=== PATIENT | female | born 1950 | race Caucasian/White ===

== ENCOUNTER → 2018-01-20 | Outpatient (CLI) | payer MEDICARE, OTHER | LOC: GMAM 16:44 | PROVIDERS: ATTEND Family Medicine | DX: E03.9 Hypothyroidism, unspecified (principal) ==

== ENCOUNTER → 2019-01-13 | Outpatient (CLI) | payer MEDICARE, OTHER | LOC: GMAM 10:45 | PROVIDERS: ATTEND Family Medicine | DX: E03.9 Hypothyroidism, unspecified (principal); Z79.899 Other long term (current) drug therapy ==

== ENCOUNTER → 2019-01-21 | Outpatient (CLI) | payer MEDICARE, OTHER ==
--- NOTE | 2019-01-21 18:43 | MRI ---
EXAM DESCRIPTION: Lumbar Spine w/o Contrast : Magnetic Resonance Imaging. CLINICAL HISTORY: LUMBAR DISC DISEASE COMPARISON: LUMBAR TECHNIQUE: Multiplanar, multiple standard sequences, non contrast MRI, lumbar spine. FINDINGS: L5-S1: The disc is well visualized on axial T2 series 501, image 3. L5-S1 disc space decreased with desiccation of the disc. No significant bulging, but hyperintense T2-weighted annular fissure in the left posterior lateral margin abutting the foramen. Posterior elements unremarkable. Canal and foramina are patent. L4-L5: Moderate loss of the disc space with disc desiccation. Minimal anterior bulging and endplate ridging. Multiple endplate irregularities superiorly and inferiorly. Moderate endplate reactive changes bilaterally and anteriorly more than posterior. Bilateral hypertrophic facet arthrosis and posterior lateral bilateral endplate ridging. Canal is patent with minimal bilateral foraminal narrowing. L3-L4: Disc desiccation with minimal disc space loss mostly posterior. No significant bulge into the canal and foramina and no significant narrowing. Hypertrophic facet arthrosis and posterior ligament thickening minimal. Circumscribed hyperintense T1 and T2 hemangioma superior L2 vertebral body. L2-L3: Marked loss of disc space with endplate reactive changes more severe in the midline and to the right of midline with more advanced changes to the right of midline. Anterior disc bulge with endplate ridging. Disc osteophyte bulge on the right narrowing the right foramen and abutting the right L2 nerve. Mild hypertrophic facet arthrosis and posterior ligament thickening abutting the thecal sac with posterior mild disc osteophyte bulge and trace anterolisthesis. Mild canal narrowing. Left foramen patent. L1-L2: Moderate disc space loss with endplate irregularities anterior bulging and endplate ridging. Acute or subacute Schmorl's node superior L2 endplate containing fluid with surrounding marrow edema. More advanced endplate changes to the right of midline with disc spur complex narrowing the right foramen. Posterior ligament thickening and hypertrophic facet arthrosis minimal. Minimal canal narrowing. T12-L1: Disc desiccation with disc space maintained. No posterior bulging. Mild hypertrophic facet arthrosis and posterior ligament thickening. Canal and foramina are patent. Conus terminates at this level. L2-S1 levoscoliosis. Decreased lordosis. Paravertebral soft tissues paraspinal muscle atrophy.. Distal cord normal signal and caliber. Heterogeneous marrow signal in the remaining vertebral bodies and the posterior elements. Vertebral bodies are not compressed at any level. IMPRESSION: 1. Multiple levels of moderate to advanced disc space loss and spondylosis. No canal or foraminal stenosis at any level. 2. Annular fissure posterior left lateral L5-S1 disc abutting the foramen but no significant bulge and no herniation. Canal and foramina with no significant narrowing. 3. L2-L3 disc osteophyte bulge on the right with spondylosis narrowing right foramen and abutting the right L2 nerve. 4. Acute or subacute Schmorl's node in the superior L3 endplate centrally. Electronically signed by: Medhat Jimenez MD 01/21/2019 6:41 PM [facility]
== END ==
LOC: MRI 08:00
PROVIDERS: ATTEND Family Medicine
DX: M47.26 Other spondylosis with radiculopathy, lumbar region (principal); M51.16 Intervertebral disc disorders with radiculopathy, lumbar region; M25.78 Osteophyte, vertebrae; M51.46 Schmorl's nodes, lumbar region; M85.9 Disorder of bone density and structure, unspecified

== ENCOUNTER → 2019-01-22 | Outpatient (CLI) | payer MEDICARE, OTHER ==
--- NOTE | 2019-01-25 12:11 | MAM ---
EXAM DESCRIPTION: 3D Screening BILATERAL : Digital Mammography. CLINICAL HISTORY: 68 years Female ANNUAL SCREENING . No complaints or personal history of breast cancer. Remote family history of breast cancer. Menarche age 11. Childbirth age 23. Postmenopausal unknown age. HRT unknown duration. Lifetime risk of developing breast cancer (Tyrer-Cuzick model)(%): 5.6. COMPARISON: Baseline study at this facility. No prior reports available. TECHNIQUE: Bilateral CC and MLO projection full-field images, digital tomosynthesis mammographic technique. Bilateral digital 2-D full-field MLO images. CAD not available for tomosynthesis or 2-D images. FINDINGS: The breast parenchymal density pattern is: Scattered areas of fibroglandular density. No skin thickening or nipple retraction. Bilateral solitary microcalcifications. Fibroglandular tissues are predominantly in the mid breast and upper outer quadrants bilaterally. Focal asymmetry upper outer quadrant posterior third right breast, 10:00-10:30, 10 cm from the nipple. Also focal asymmetry to 30, 3 cm from the nipple. No abnormal microcalcifications. No focal, stellate mass or density, focal asymmetry , and no suspicious microcalcifications left breast IMPRESSION: BI-RADS CATEGORY: 0 - INCOMPLETE- Need additional imaging evaluation. FOLLOW-UP: Recall for additional imaging: Full-field 2-D and tomosynthesis LM projection right breast with directed right breast ultrasound.. Written communication concerning the IMPRESSION and Follow-up, will be mailed to the patient and referring health care provider. Electronically signed by: Medhat Jimenez MD 01/25/2019 12:10 PM [facility]
== END | disposition home or self-care (01) ==
LOC: MAMMO 11:00
PROVIDERS: ATTEND Family Medicine
DX: Z12.31 Encounter for screening mammogram for malignant neoplasm of breast (principal)

== ENCOUNTER → 2019-07-22 | Outpatient (CLI) | payer MEDICARE, OTHER | LOC: GMAM 11:11 | PROVIDERS: ATTEND Family Medicine | DX: E03.9 Hypothyroidism, unspecified (principal); E78.2 Mixed hyperlipidemia ==

== ENCOUNTER → 2019-10-26 | Outpatient (CLI) | payer MEDICARE, OTHER | END | disposition home or self-care (01) | LOC: GMAM 14:23 | PROVIDERS: ATTEND Family Medicine | DX: R39.15 Urgency of urination (principal) ==

== ENCOUNTER 2020-01-10 05:05 | Day surgery (SDC) | payer MEDICARE, OTHER ==
[2020-01-10] MEDS ORDERED: MIDAZOLAM INJ 2 MG/2 ML VIAL ONE ×3 (06:47→10:26)
[2020-01-10] MEDS ORDERED: TROP1%/CYCLOPEN 1%/PHENYL 2.5% DROPS OPHTH ONE (09:30)
[2020-01-10] MEDS ORDERED: PROPARACAINE 0.5% OPHTH SOL 15 ML BTTL LEFT_EYE ONE (10:29)
[2020-01-10] MEDS ORDERED: LIDOCAINE 1% MPF 2 ML VIAL INJ ONE ×2 (10:39→10:43)
[2020-01-10] MEDS ORDERED: MOXIFLOXACIN HCL (OPHTH) 1 DROP DROPS LEFT_EYE ONE ×2 (10:40→10:53)
[2020-01-10] MEDS ORDERED: TOBRAMYCIN SULF 0.3 % OPHT SOL 1 DROP LEFT_EYE ONE ×2 (10:41→10:53)
[2020-01-10] MEDS ORDERED: DEXAMETHASONE 0.1% OPHTH SOL 1 DROP LEFT_EYE ONE ×2 (10:41→10:53)
[2020-01-10] MEDS ORDERED: BRIMONIDINE 0.2% OPHTH DROPS LEFT_EYE ONE ×2 (10:42→10:53)
== END 2020-01-10 11:32 | disposition home or self-care (01) ==
LOC: AMB 05:05
PROVIDERS: ATTEND Ophthalmology
DX: H25.13 Age-related nuclear cataract, bilateral (principal); Z88.8 Allergy status to other drugs, medicaments and biological substances
CPT/HCPCS: 00142; 66984; J2250

== ENCOUNTER → 2020-01-20 | Outpatient (CLI) | payer MEDICARE, OTHER | LOC: GMAM 11:02 | PROVIDERS: ATTEND Family Medicine | DX: E03.9 Hypothyroidism, unspecified (principal); E78.2 Mixed hyperlipidemia; Z79.899 Other long term (current) drug therapy ==

== ENCOUNTER 2020-02-07 05:36 | Day surgery (SDC) | payer MEDICARE, OTHER ==
[2020-02-07] MEDS ORDERED: TROP1%/CYCLOPEN 1%/PHENYL 2.5% DROPS OPHTH ONE (05:37)
[2020-02-07] MEDS ORDERED: MIDAZOLAM INJ 2 MG/2 ML VIAL ONE ×2 (07:03→07:31)
[2020-02-07] MEDS ORDERED: PROPARACAINE 0.5% OPHTH SOL 15 ML BTTL RIGHT_EYE ONE (07:13)
[2020-02-07] MEDS ORDERED: DEXAMETHASONE 0.1% OPHTH SOL 1 DROP RIGHT_EYE ONE ×2 (07:24→07:53)
[2020-02-07] MEDS ORDERED: MOXIFLOXACIN HCL (OPHTH) 1 DROP DROPS RIGHT_EYE ONE ×2 (07:24→07:53)
[2020-02-07] MEDS ORDERED: LIDOCAINE 1% MPF 2 ML VIAL INJ ONE ×2 (07:24→07:46)
[2020-02-07] MEDS ORDERED: BRIMONIDINE 0.2% OPHTH DROPS RIGHT_EYE ONE ×2 (07:25→07:53)
[2020-02-07] MEDS ORDERED: TOBRAMYCIN SULF 0.3 % OPHT SOL 1 DROP RIGHT_EYE ONE ×2 (07:25→07:53)
== END 2020-02-07 08:38 | disposition home or self-care (01) ==
LOC: AMB 05:36
PROVIDERS: ATTEND Ophthalmology
DX: H25.11 Age-related nuclear cataract, right eye (principal); Z88.8 Allergy status to other drugs, medicaments and biological substances
CPT/HCPCS: 00142; 66984; J2250